=== PATIENT | male | born 1985 | race Two or more races ===

== ENCOUNTER 2024-09-18 18:53 | Emergency (ER) | payer MEDICAID ==
[~2024-09-18] VITALS: Ht 175.3 cm; Wt 113.6 kg
[2024-09-18 18:56] VITALS: TEMP 98.1
[2024-09-18 20:43] LABS: BASOPHILS % (AUTO) 0.5 % (0.0-2.0); EOSINOPHILS % (AUTO) 1.7 % (1.0-6.0); HEMATOCRIT 48.1 % (41-53); HEMOGLOBIN 16.6 g/dL (13.5-17.5); LYMPHOCYTES # (AUTO) 2.6 K/uL (1.0-4.8); LYMPHOCYTES % (AUTO) 33.9 % (22.0-44.0); MEAN CORPUSCULAR HEMOGLOBIN 28.9 pg (26.0-34.0); MEAN CORPUSCULAR HGB CONC 34.4 G/dL (31.0-37.0); MEAN CORPUSCULAR VOLUME 84 fL (80-100); MONOCYTES # (AUTO) 0.5 K/uL (0.1-1.0); MONOCYTES % (AUTO) 6.7 % (2.0-9.0); NEUTROPHILS # (AUTO) 4.4 K/uL (1.8-7.7); NEUTROPHILS % (AUTO) 57.2 % (40.0-70.0); PLATELET COUNT (AUTO) 298 K/uL (150-450); RED BLOOD CELL COUNT(AUTO) 5.72 MIL/uL (4.50-5.90); RED CELL DISTRIBUTION WIDTH 13.1 % (11.5-14.5); WHITE BLOOD COUNT (AUTO) 7.6 K/uL (4.5-11.0)
[2024-09-18 20:55] LABS: ANION GAP 5 mmol/L (8-16); CALCIUM, TOTAL 9.4 mg/dL (8.8-10.5); CARBON DIOXIDE 32 mmol/L (22-29); CHLORIDE 104 mmol/L (98-107); CREATININE 0.76 mg/dL (0.60-1.30); GLOMERULAR FILTR. RATE CALC > 60 mL/min (>60); GLUCOSE,RANDOM 135 mg/dL (70-110); POTASSIUM 4.1 mmol/L (3.5-5.1); SODIUM SERUM 141 mmol/L (136-145); UREA NITROGEN, BLOOD 8 mg/dL (7-18)
[2024-09-18 21:00] LABS: TROPONIN I-HIGH SENSITIVITY 5 ng/L (<76)
[2024-09-19 01:05] VITALS: BP 114/72; PULSE 78; RESP 14; O2SAT 99
== END 2024-09-19 01:18 | disposition home or self-care (01) ==
LOC: EMS 18:53
DX: H53.8 Other visual disturbances (principal); E11.9 Type 2 diabetes mellitus without complications; I49.8 Other specified cardiac arrhythmias
CPT/HCPCS: 70450; 71045; 80048; 84484; 85025; 93005; 99285; 36415-L1; 36415-TC

== ENCOUNTER → 2024-09-19 | Emergency (ER) | payer MEDICAID ==
[~2024-09-19] VITALS: Ht 177.8 cm; Wt 113.0 kg
[2024-09-19 15:52] VITALS: BP 131/92; PULSE 89; RESP 16; TEMP 98; O2SAT 99
[2024-09-19 16:11] LABS: GLUCOMETER DEV NAME(LOC) ERT.6; GLUCOSE,POINT OF CARE 129 MG/DL (70-110)
== END | disposition left against medical advice (07) ==
LOC: EMS 15:48
DX: H53.8 Other visual disturbances (principal); Z53.21 Procedure and treatment not carried out due to patient leaving prior to being seen by health care provider
CPT/HCPCS: 82962